=== PATIENT | male | born 1995 | race Caucasian/White ===

== ENCOUNTER 2016-11-20 20:09 | Emergency (ER) | payer SELFPAY ==
[2016-11-21 00:19] VITALS: BP 131/73
== END 2016-11-21 00:19 | disposition home or self-care (01) ==
LOC: ED 20:09
DX: S01.02XA Laceration with foreign body of scalp, initial encounter (principal); X58.XXXA Exposure to other specified factors, initial encounter; Y93.66 Activity, soccer; Y92.39 Other specified sports and athletic area as the place of occurrence of the external cause; Y99.8 Other external cause status
CPT/HCPCS: J2001